=== PATIENT | female | born 1985 | race Caucasian/White ===

== ENCOUNTER 2022-12-11 10:19 | Emergency (ER) | payer MEDICAID, SELFPAY ==
[2022-12-11 10:30] VITALS: BP 103/67; PULSE 64; RESP 12; TEMP 36.8; O2SAT 99; BMI 19.9
--- NOTE | 2022-12-11 11:43 | CRLHL7_ITS ---
For Patients: As a result of the Century Cures Act, medical imaging exams and procedure reports are released immediately into your electronic medical record. You may view this report before your referring provider. If you have questions, please contact your health care provider. CLINICAL HISTORY: LLQ pain. recent miscarriage. hx of ovarian cysts TECHNIQUE: 2D dotson scale and color Doppler images were acquired of the pelvis using a transvaginal approach. Power Doppler evaluation of both ovaries also performed. FINDINGS: On transvaginal imaging, the myometrium has a normal uniform echotexture. The uterus measures 10.0 x 4.5 x 5.5 cm. The endometrial lining appears normal and measures 12 mm in thickness. The left ovary measures 3.1 x 1.5 x 1.3 cm in size and the right ovary measures 3.4 x 2.0 x 2.0 cm. The ovaries demonstrate normal arterial and venous blood flow on color Doppler analysis. Normal power Doppler evaluation of both ovaries. No torsion. Dominant follicle right ovary measuring 1.7 cm. There are no suspicious fluid collections within the cul-de-sac. IMPRESSION: No evidence of ovarian torsion or adnexal mass. No excess pelvic free fluid. Normal endometrium. Dictated by Sreekanth Montoya MD @ 12/11/2022 12:31:56 PM (Electronically Signed)
[2022-12-11] MEDS: 0.9 % SODIUM CHLORIDE 1000 ml 1,000 ML IV (11:46)
[2022-12-11 11:56] LABS: Appearance Urine Clear (Clear); Bilirubin Urine Negative (Negative); Blood Urine Negative (Negative); Color Urine Yellow (Yellow); Glucose Urine Negative (Negative); Ketones Urine 1+ (Negative); Leukocyte Esterase Urine Negative (Negative); Nitrite Urine Negative (Negative); Protein Urine Trace (Negative); Urobilinogen Urine 0.2 (0.2-1.0); pH Urine 7.5 (5.0-8.5)
[2022-12-11 12:00] VITALS: BP 99/66; PULSE 57; RESP 14; O2SAT 98
[2022-12-11 12:04] LABS: Amorphous Sediment Urine Moderate; Bacteria Urine Few; Mucus Urine Few; RBC Urine 0-2 (0-2); Squamous Epithelial Cell Urine Few (None-Few); WBC Urine 0-2 (0-5)
[2022-12-11 12:08] LABS: Basophils Absolute Auto 0.02 K/uL (0.00-0.30); Basophils Percent Auto 0.3 % (0.0-3.0); Eosinophils Absolute Auto 0.04 K/uL (0.00-0.50); Eosinophils Percent Auto 0.7 % (0.0-7.0); Hematocrit 36.5 % (33.0-51.0); Hemoglobin* 12.5 gm/dL (12.0-16.0); Immature Granulocytes Abs Auto 0.01 K/uL (0.00-0.30); Immature Granulocytes Pct Auto 0.2 %; Lymphocytes Percent Auto 15.2 % (20-44); Mean Corpuscular HGB Conc 34 gm/dL (32-36); Mean Corpuscular Hemoglobin 29 pg (26-34); Mean Corpuscular Volume 86 fL (80-100); Monocytes Percent Auto 5.4 % (0.0-11.0); Neutrophils Percent Auto 78.2 % (42.0-72.0); Platelet Count* 232 K/uL (140-440); RDW Coefficient of Variation % 12.5 % (11.5-15.5); Red Blood Count 4.26 m/uL (4.00-5.20); White Blood Count* 5.98 K/uL (4.50-11.00)
[2022-12-11 12:10] LABS: Slide Review Reflex No
[2022-12-11 12:25] LABS: D Dimer Quantitative* 0.29 ug/ml (0.00-0.50)
[2022-12-11 12:26] LABS: Chloride* 107 mmol/L (96-114); Sodium* 138 mmol/L (135-149)
[2022-12-11 12:27] LABS: PCR FLU A Negative PCR FLU A (Negative); PCR FLU B Negative PCR FLU B (Negative); PCR RSV Negative PCR RSV (Negative)
--- NOTE | 2022-12-11 12:28 | ED.SYNCOPE ---
HPI - Syncope General Date Seen: 12/11/22 Chief Complaint: Nausea/Vomiting Stated Complaint: Shock episodes, close to passing out Time Seen by Provider: 12/11/22 11:19 Source: patient and family Mode of arrival: ambulatory Limitations: no limitations History of Present Illness HPI narrative: Patient is a 37-year-old female who presents here for evaluation with 2 episodes this morning of syncope. She is was associated with the urge or lower abdominal pain, more left-sided than right. She basically passed out twice, associated with this. She has never before had episodes of this, in the last month however she has had a miscarriage, and tells me that her are trying to conceive, she has been 8 times in the past, with 5 miscarriages. Denies any vaginal bleeding, history of anemia, history of any heart history chest pain shortness of breath associated with this. She did not eat this morning, but this is not uncommon for her. She felt at the time of the syncope that the room was getting black and closing in and she felt some tingling in her hands bilaterally. Symptoms have now resolved, but she can not really explain this. MD complaint: felt faint Onset (ago): minute(s) Prodromal symptoms: vision changes, lightheaded and nausea/vomiting Context: at rest Injuries sustained associated with event: none Current symptoms: none Treatments prior to arrival: none Related Data Home Medications Medication Instructions Recorded Confirmed magnesium oxide 400 mg PO DAILY 12/11/22 12/11/22 Allergies Allergy/AdvReac Type Severity Reaction Status Date / Time diphenhydramine AdvReac Unknown Difficulty Verified 12/11/22 10:39 [From Benadryl] Breathing Review of Systems Status of ROS: Reports: 10 or more systems reviewed and unremarkable except as noted in History and below [facility] Social History Smoking Status: Never smoker How often do you have a drink containing alcohol: monthly or less AUDIT-C Alcohol total score: 1 Non-prescribed substance use: denies use Exam Narrative: Exam Narrative: Patient is seen in room 6 she is in no apparent distress she is accompanied by her significant other. Patient is speaking normally,no problem with slurring words, oriented x3. Head eyes ears nose and throat exam show equal pupils, no scleral icterus, extraocular muscles are normal, no facial droop, speech is normal, trachea normal and midline. Thyroid normal midline palpable not enlarged. Chest shows symmetrical rise bilaterally, normal auscultation with no wheezes, no increased work of breathing, no overt bruising or lesions seen, no tenderness is noted on auscultation. Heart sounds normal with no S3-S4 no murmurs clicks or gallops. Abdomen shows no obvious masses or hepatosplenomegaly, no organomegaly, bowel sounds are normal in all quadrants. No tenderness is noted also in all quadrants. Upper and lower extremities show normal power, normal range of motion, pulses are normal, sensations normal, fine motor movements are normal, pelvis is stable to rocking. Cervical spine shows normal range of motion, and palpably not tender. Thoracic spine shows normal range of motion, and palpably not tender, lumbar spine shows no tenderness to palpation percussion and is otherwise normal range of motion. Skin shows no rashes, petechiae or eccymosis. Const: Vital Signs, click to edit/add: Vital Signs - 24 hr 12/11/22 10:30 12/11/22 12:00 12/11/22 13:00 Temperature 98.3 F Pulse Rate [Pulse Oximeter] 64 57 L 71 Respiratory Rate 12 14 16 Blood Pressure [Ri ght Upper Arm] 103/67 99/66 106/60 Pulse Oximetry 99 98 98 Oxygen Delivery Me thod Room Air Room Air Room Air 12/11/22 14:00 Temperature Pulse Rate [Pulse Oximeter] 75 Respiratory Rate 16 Blood Pressure [Ri ght Upper Arm] 112/63 Pulse Oximetry 98 Oxygen Delivery Me thod Room Air Documenting provider has reviewed patient's vital signs: yes Course Course Hospital Course: Life-threatening differential diagnosis considered include: Cardiac arrhythmia, acute blood loss, and intracranial bleed. Other differential diagnosis include but are not limited to vasovagal syncope, orthostatic syncope, seizure, as well as other etiologies During the evaluation of this patient I considered multiple differential diagnosis including life-threatening differentials which are appendicitis, aortic aneurysm, mesenteric ischemia, bowel perforation, ectopic , volvulus and bowel obstruction, other differential diagnosis include but are not limited to inflammatory bowel disease, cholecystitis, pancreatitis, hepatitis, gastritis, GERD, diverticulitis, peptic ulcer disease, pyelonephritis/UTI, renal colic/stone, pelvic inflammatory disease, cervicitis, endometritis, intrauterine , dysfunctional uterine bleeding, ovarian cyst/torsion, spontaneous as well as other etiologies Reevaluation(s) Reevaluation #1: Discussed with the patient that her quantitative HCG came back at 9, she actually only had a miscarriage a week ago, which is still consistent with this. The rest the labs looked okay, she felt better and I think at this point we can reasonably discharge her, course if she is having episodes of passing out chest pain feels her heart racing, then I think she should come back and be seen. She was very comfortable this Time: 15:36 Vital Signs Vital signs: Initial Vital Signs Temperature 98.3 F 12/11/22 10:30 Temperature Source Temporal Artery Scan 12/11/22 10:30 Pulse Rate 64 12/11/22 10:30 Pulse Rhythm 12/11/22 10:30 Respiratory Rate 12 12/11/22 10:30 Blood Pressure 103/67 12/11/22 10:30 Blood Pressure Mean 79 12/11/22 10:30 Blood Pressure Position Sitting 12/11/22 10:30 Pulse Oximetry 99 12/11/22 10:30 Oxygen Delivery Method 12/11/22 10:30 Vital Signs Temperature 98.3 F 12/11/22 10:30 Pulse Rate 64 12/11/22 10:30 Respiratory Rate 12 12/11/22 10:30 Blood Pressure 103/67 12/11/22 10:30 Pulse Oximetry 99 12/11/22 10:30 Oxygen Delivery Method 12/11/22 10:30 Temperature 98.3 F 12/11/22 10:30 Pulse Rate 75 12/11/22 14:00 Respiratory Rate 16 12/11/22 14:00 Blood Pressure 112/63 12/11/22 14:00 Pulse Oximetry 98 12/11/22 14:00 Oxygen Delivery Method 12/11/22 14:00 MDM - Syncope MDM Narrative Medical decision making narrative: Life-threatening differential diagnosis considered include: Cardiac arrhythmia, acute blood loss, and intracranial bleed. Other differential diagnosis include but are not limited to vasovagal syncope, orthostatic syncope, seizure, as well as other etiologies Differential Diagnosis Differential diagnosis: Likely syncope due to orthostatic hypotension, vasovagal syncope, complete atrioventricular block, subarachnoid hemorrhage, pulmonary embolism and dehydration Medical Records Attestation: I reviewed the patient's medical records. Lab Data Attestation: I reviewed the patient's lab results. Labs: Lab Results 12/11/22 12/11/22 12/11/22 Range/Units 11:19 11:20 11:45 WBC 5.98 (4.50-11.00) K/uL RBC 4.26 (4.00-5.20) m/uL Hgb 12.5 (12.0-16.0) gm/dL Hct 36.5 (33.0-51.0) % MCV 86 (80-100) fL MCH 29 (26-34) pg MCHC 34 (32-36) gm/dL RDW Coeff of Roddy 12.5 (11.5-15.5) % Plt Count 232 (140-440) K/uL Neut % (Auto) 78.2 H (42.0-72.0) % Lymph % (Auto) 15.2 L (20-44) % [place] % (Auto) 5.4 (0.0-11.0) % Eos % (Auto) 0.7 (0.0-7.0) % Baso % (Auto) 0.3 (0.0-3.0) % Neut # (Auto) 4.70 (1.7-7.0) K/uL Lymph # (Auto) 0.90 (0.90-2.90) K/uL [place] # (Auto) 0.30 (0.00-0.90) K/UL Eos # (Auto) 0.04 (0.00-0.50) K/uL Baso # (Auto) 0.02 (0.00-0.30) K/uL D-Dimer Quant (PE/DVT) (0.00-0.50) ug/ml Sodium (135-149) mmol/L Potassium (3.6-5.1) mmol/L Chloride (96-114) mmol/L Carbon Dioxide (20-32) mmol/L BUN (5-24) mg/dL Creatinine (0.5-1.5) mg/dL Estimated Creat Clear Estimated GFR ml/min Glucose (60-115) mg/dL Calcium (8.4-10.6) mg/dL C-Reactive Protein (0.5-1.0) mg/dL HCG, Qual (Negative) HCG, Quant mIU/mL Urine Color Yellow (Yellow) Urine Appearance Clear (Clear) Urine pH 7.5 (5.0-8.5) Ur Specific Seminary 1.020 (1.000-1.030) Urine Protein Trace A (Negative) Urine Glucose (UA) Negative (Negative) Urine Ketones 1+ A (Negative) Urine Blood Negative (Negative) Urine Nitrite Negative (Negative) Urine Bilirubin Negative (Negative) Urine Urobilinogen 0.2 (0.2-1.0) Ur Leukocyte Esterase Negative (Negative) Urine RBC 0-2 (0-2) Urine WBC 0-2 (0-5) Ur Squamous Epith Cells Few (None-Few) Amorphous Sediment Moderate A (None) Urine Bacteria Few A (None) Urine Mucus Few A (None) SARS-CoV-2 (PCR) Negative SARS-CoV-2 (Negative) Influenza Type A (PCR) Negative PCR FLU A (Negative) Influenza Type B (PCR) Negative PCR FLU B (Negative) RSV (PCR) Negative PCR RSV (Negative) POC Troponin I (0.01-0.04) ng/ml 12/11/22 12/11/22 12/11/22 Range/Units 11:45 11:45 11:45 WBC (4.50-11.00) K/uL RBC (4.00-5.20) m/uL Hgb (12.0-16.0) gm/dL Hct (33.0-51.0) % MCV (80-100) fL MCH (26-34) pg MCHC (32-36) gm/dL RDW Coeff of Roddy (11.5-15.5) % Plt Count (140-440) K/uL Neut % (Auto) (42.0-72.0) % Lymph % (Auto) (20-44) % [place] % (Auto) (0.0-11.0) % Eos % (Auto) (0.0-7.0) % Baso % (Auto) (0.0-3.0) % Neut # (Auto) (1.7-7.0) K/uL Lymph # (Auto) (0.90-2.90) K/uL [place] # (Auto) (0.00-0.90) K/UL Eos # (Auto) (0.00-0.50) K/uL Baso # (Auto) (0.00-0.30) K/uL D-Dimer Quant (PE/DVT) 0.29 (0.00-0.50) ug/ml Sodium (135-149) mmol/L Potassium (3.6-5.1) mmol/L Chloride (96-114) mmol/L Carbon Dioxide (20-32) mmol/L BUN (5-24) mg/dL Creatinine (0.5-1.5) mg/dL Estimated Creat Clear Estimated GFR ml/min Glucose (60-115) mg/dL Calcium (8.4-10.6) mg/dL C-Reactive Protein < 0.5 L (0.5-1.0) mg/dL HCG, Qual Positive (Negative) HCG, Quant mIU/mL Urine Color (Yellow) Urine Appearance (Clear) Urine pH (5.0-8.5) Ur Specific Seminary (1.000-1.030) Urine Protein (Negative) Urine Glucose (UA) (Negative) Urine Ketones (Negative) Urine Blood (Negative) Urine Nitrite (Negative) Urine Bilirubin (Negative) Urine Urobilinogen (0.2-1.0) Ur Leukocyte Esterase (Negative) Urine RBC (0-2) Urine WBC (0-5) Ur Squamous Epith Cells (None-Few) Amorphous Sediment (None) Urine Bacteria (None) Urine Mucus (None) SARS-CoV-2 (PCR) (Negative) Influenza Type A (PCR) (Negative) Influenza Type B (PCR) (Negative) RSV (PCR) (Negative) POC Troponin I (0.01-0.04) ng/ml 12/11/22 12/11/22 12/11/22 Range/Units 11:45 11:45 11:45 WBC (4.50-11.00) K/uL RBC (4.00-5.20) m/uL Hgb (12.0-16.0) gm/dL Hct (33.0-51.0) % MCV (80-100) fL MCH (26-34) pg MCHC (32-36) gm/dL RDW Coeff of Roddy (11.5-15.5) % Plt Count (140-440) K/uL Neut % (Auto) (42.0-72.0) % Lymph % (Auto) (20-44) % [place] % (Auto) (0.0-11.0) % Eos % (Auto) (0.0-7.0) % Baso % (Auto) (0.0-3.0) % Neut # (Auto) (1.7-7.0) K/uL Lymph # (Auto) (0.90-2.90) K/uL [place] # (Auto) (0.00-0.90) K/UL Eos # (Auto) (0.00-0.50) K/uL Baso # (Auto) (0.00-0.30) K/uL D-Dimer Quant (PE/DVT) (0.00-0.50) ug/ml Sodium 138 (135-149) mmol/L Potassium 4.0 (3.6-5.1) mmol/L Chloride 107 (96-114) mmol/L Carbon Dioxide 27 (20-32) mmol/L BUN 15 (5-24) mg/dL Creatinine 0.7 (0.5-1.5) mg/dL Estimated Creat Clear 95.98 Estimated GFR 113 ml/min Glucose 92 (60-115) mg/dL Calcium 8.7 (8.4-10.6) mg/dL C-Reactive Protein (0.5-1.0) mg/dL HCG, Qual (Negative) HCG, Quant 9.49 mIU/mL Urine Color (Yellow) Urine Appearance (Clear) Urine pH (5.0-8.5) Ur Specific Seminary (1.000-1.030) Urine Protein (Negative) Urine Glucose (UA) (Negative) Urine Ketones (Negative) Urine Blood (Negative) Urine Nitrite (Negative) Urine Bilirubin (Negative) Urine Urobilinogen (0.2-1.0) Ur Leukocyte Esterase (Negative) Urine RBC (0-2) Urine WBC (0-5) Ur Squamous Epith Cells (None-Few) Amorphous Sediment (None) Urine Bacteria (None) Urine Mucus (None) SARS-CoV-2 (PCR) (Negative) Influenza Type A (PCR) (Negative) Influenza Type B (PCR) (Negative) RSV (PCR) (Negative) POC Troponin I 0.00 L (0.01-0.04) ng/ml 12/11/22 Range/Units 13:47 WBC (4.50-11.00) K/uL RBC (4.00-5.20) m/uL Hgb (12.0-16.0) gm/dL Hct (33.0-51.0) % MCV (80-100) fL MCH (26-34) pg MCHC (32-36) gm/dL RDW Coeff of Roddy (11.5-15.5) % Plt Count (140-440) K/uL Neut % (Auto) (42.0-72.0) % Lymph % (Auto) (20-44) % [place] % (Auto) (0.0-11.0) % Eos % (Auto) (0.0-7.0) % Baso % (Auto) (0.0-3.0) % Neut # (Auto) (1.7-7.0) K/uL Lymph # (Auto) (0.90-2.90) K/uL [place] # (Auto) (0.00-0.90) K/UL Eos # (Auto) (0.00-0.50) K/uL Baso # (Auto) (0.00-0.30) K/uL D-Dimer Quant (PE/DVT) (0.00-0.50) ug/ml Sodium (135-149) mmol/L Potassium (3.6-5.1) mmol/L Chloride (96-114) mmol/L Carbon Dioxide (20-32) mmol/L BUN (5-24) mg/dL Creatinine (0.5-1.5) mg/dL Estimated Creat Clear Estimated GFR ml/min Glucose (60-115) mg/dL Calcium (8.4-10.6) mg/dL C-Reactive Protein (0.5-1.0) mg/dL HCG, Qual (Negative) HCG, Quant mIU/mL Urine Color (Yellow) Urine Appearance (Clear) Urine pH (5.0-8.5) Ur Specific Seminary (1.000-1.030) Urine Protein (Negative) Urine Glucose (UA) (Negative) Urine Ketones (Negative) Urine Blood (Negative) Urine Nitrite (Negative) Urine Bilirubin (Negative) Urine Urobilinogen (0.2-1.0) Ur Leukocyte Esterase (Negative) Urine RBC (0-2) Urine WBC (0-5) Ur Squamous Epith Cells (None-Few) Amorphous Sediment (None) Urine Bacteria (None) Urine Mucus (None) SARS-CoV-2 (PCR) (Negative) Influenza Type A (PCR) (Negative) Influenza Type B (PCR) (Negative) RSV (PCR) (Negative) POC Troponin I 0.00 L (0.01-0.04) ng/ml ECG Data Attestation: I personally reviewed and interpreted this ECG as follows: ECG interpretation date: 12/11/22 Interpretation: EKGs are otherwise normal, with no acute ST wave changes, this is checked twice, 2 hours Discharge Plan Discharge Clinical Impression: Syncope and collapse Patient Disposition: Home w/ Parent or Adult Condition: Stable Instructions: Syncope (ED), Near Syncope (ED) Additional Instructions: Home, rest, use of fluids and 3 sq meals a day, if this continues to be a problem a call then I would recommend you follow-up with cardiology, or back in ER if becomes more of an acute thing. All your testing today was very reassuring. Prescriptions: No Action magnesium oxide 400 mg magnesium capsule 400 mg PO DAILY Follow Up/Referrals: Provider,Not a Local [Primary Care Provider] - Stand Alone Forms: [employer] Info Instructions
[2022-12-11 12:29] LABS: Blood Urea Nitrogen* 15 mg/dL (5-24); Carbon Dioxide* 27 mmol/L (20-32); Creatinine* 0.7 mg/dL (0.5-1.5); Est. Creatinine Clearance* 95.98; Estimated Glomerular Filt Rate 113 ml/min
[2022-12-11 12:30] LABS: Calcium* 8.7 mg/dL (8.4-10.6); Glucose* 92 mg/dL (60-115)
[2022-12-11 12:32] LABS: SARS PCR* Negative SARS-CoV-2 (Negative)
[2022-12-11 12:34] LABS: C Reactive Protein* < 0.5 mg/dL (0.5-1.0)
[2022-12-11 12:56] LABS: HCG Qualitative Serum* Positive (Negative)
[2022-12-11 13:00] VITALS: BP 106/60; PULSE 71; RESP 16; O2SAT 98
[2022-12-11 13:36] LABS: HCG Quantitative* 9.49 mIU/mL
[2022-12-11 14:00] VITALS: BP 112/63; PULSE 75; RESP 16; O2SAT 98
== END 2022-12-11 14:39 | disposition home or self-care (01) ==
PROVIDERS: Emergency Provider Family Medicine
DX: R55 Syncope and collapse (principal)
CPT/HCPCS: 36415; 76830; 80048; 81001; 84484; 84702; 84703; 85025; 85379; 86140; 87086; 87502; 87634; 87635; 93005; 93976; 99284; 99285; J7030